=== PATIENT | female | born 1955 | race Caucasian/White ===

== ENCOUNTER 2018-12-13 15:57 | Emergency (ER) | payer OTHER, MEDICAID ==
[2018-12-13] MEDS: ACETAMINOPHEN 325 MG TAB PO (17:39)
== END 2018-12-13 19:11 | disposition home or self-care (01) ==
LOC: FTE 15:57
DX: G44.209 Tension-type headache, unspecified, not intractable (principal)
CPT/HCPCS: 70450; 99284-25